=== PATIENT | female | born 1965 | race Two or more races ===

== ENCOUNTER 2024-09-30 04:02 | Emergency (ER) | payer OTHER ==
[~2024-09-30] VITALS: Ht 162.6 cm; Wt 68.1 kg
--- NOTE | 2024-09-30 04:43 | ED.PDOC ---
GI ASSESSMENT HPI Comments 59 year old female presents to the ED via EMS with a chief complaint of abdominal pain onset today (09/30/24) around 02:30. Patient states she has been experiencing chronic constipation for the past year, was seen in an ED about a year ago, was recommended to follow up with PCP for colonoscopy. Patient took a tea last night to help with constipation, woke up today around 02:30, noticed she was experiencing rectal bleeding, states it was about 8 oz of bright red blood, as well as nausea/vomiting. She was given 100 mcg Fentanyl in route to ED, improved patient's pain. Denies any PMHx as well as chest pain, shortness of breath, dysuria, hematuria, hematemesis, fevers. No other symptoms or modifying factors present at this time. Chief Complaint: Abdominal Pain Time Seen by MD: 04:30 Reviewed Notes: Medications, Allergies Allergies: Coded Allergies: Latex (Verified Allergy, Unknown, 09/30/24) Home Meds Active Scripts Gabapentin (Once-Daily) (Gabapentin) 300 Mg Tab, 300 MG PO Q6HP PRN, #60 TAB Prov:ARLET BHAKTA MD 09/30/24 Fiber (FIBER SELECT GUMMIES) Gummies Chw, 1 UNIT OR QID for 90 Days, #360 TAB.CHEW 3 Refills Prov:ARLET BHAKTA MD 09/30/24 Ondansetron HCl (Ondansetron Hydrochloride) 8 Mg Tab, 8 MG PO Q6HP PRN, #30 TAB Prov:ARLET BHAKTA MD 09/30/24 Information Source: Patient, Emergency Med Personnel Timing: Hours Duration: Since onset Prehospital treatment: Pain Meds (Fentanyl 100 mcg) Quality: Sharp Stool: Blood Streaked Severity: Moderate Recent: None Recent Hx of: None Pain Location: Suprapubic Modifying Factors: Nothing Associated sign and symptoms: Nausea, Vomiting, Abdominal Pain, Blood in Stool Past Medical History PAST MEDICAL HISTORY: Denies Surgical History: Hysterectomy BAG GRADER History: No Pertinent BAG GRADER History Family History Family History: Reviewed,noncontributory to illness, No family hx of Cancer, No family hx of DM, No family hx of Heart john, No family hx of HTN, No family hx ofKidney john, No family hx of Liver john, No family hx of Lung john, No family hx of Stroke Social History Smoker: Non-Smoker Alcohol: Denies ETOH Use Drugs: Denies Drug Use Lives In: Home Constitutional: denies: chills, diaphoresis, fatigue, fever, malaise, sweats, weakness, others EENTM: denies: blurred vision, double vision, ear bleeding, ear discharge, ear drainage, ear pain, ear ringing, eye pain, eye redness, hearing loss, mouth pain, mouth swelling, nasal discharge, nose bleeding, nose congestion, nose pain, photophobia, tearing, throat pain, throat swelling, voice changes, others Respiratory: denies: cough, hemoptysis, orthopnea, SOB at rest, shortness of breath, SOB with excertion, stridor, wheezing, others Cardiovascular: denies: chest pain, dizzy spells, diaphoresis, Dyspnea on exertion, edema, irregular heart beat, left arm pain, lightheadedness, palpitations, PND, syncope, others Gastrointestinal: reports: abdominal pain, constipated, nausea, rectal bleeding , vomiting; denies: abdomen distended, blood streaked bowels, diarrhea, dysphagia, difficulty swallowing, hematemesis, melena, poor appetite, poor fluid intake, rectal pain, others Genitourinary: denies: abnormal vagina bleeding, burning, dyspareunia, dysuria, flank pain, frequency, hematuria, incontinence, pain, , vagina discharge, urgency, others Neurological: denies: dizziness, fainting, headache, left sided numbness, left sided weakness, numbness, paresthesia, pre-existing deficit, right sided numbness, right sided weakness, seizure, speech problems, tingling, tremors, weakness, others Musculoskeletal: denies: back pain, gout, joint pain, joint swelling, muscle pain, muscle stiffness, neck pain, others Integumetry: denies: bruises, change in color, change in hair/nails, dryness, laceration, lesions, lumps, rash, wounds, others Allergic/Immunocompromised: denies: Difficulty Healing, Frequent Infections, Hives, Itching, others Hematologic/Lymphatic: denies: anemia, blood clots, easy bleeding, easy bruising, swollen glands, others Endocrine: denies: excessive hunger, excessive sweating, excessive thirst, excessive urination, flushing, intolerance to cold, intolerance to heat, unexplained weight gain, unexplained weight loss, others Psychiatric: denies: anxiety, bipolar disorder, depression, hopeless, panic disorder, schizophrenia, sleepless, suicidal, others All Other Systems: Reviewed and Negative Physical Exam General Appearance: Normal HEENT: Normal ENT Inspection, Pharynx Normal, TMs Normal Neck: Full Range of Motion, Non-Tender, Normal, Normal Inspection Respiratory: Chest Non-Tender, Lungs Clear, No Accessory Muscle Use, No Respiratory Distress, Normal Breath Sounds Cardiovascular: No Edema, No JVD, No Murmur, No Gallop, Normal Peripheral Pulses, Regular Rate/Rhythm Breast Exam: Deferred Gastrointestinal: No Organomegaly, Non Tender, No Pulsatile Mass, Normal Bowel Sounds, Soft Genitalia: Deferred Pelvic: Deferred Rectal: Deferred Extremities: No calf tenderness, Normal capillary refill, Normal inspection, Normal range of motion, Non-tender, No pedal edema Musculoskeletal : Apperance: Normal Neurologic: Alert, cargoman II-XII nml as Tested, No Motor Deficits, Normal Affect, Normal Mood, No Sensory Deficits Cerebellar Function: Normal Reflexes: Normal Skin: Dry, Normal Color, Warm Lymphatic: No Adenopathy Was a procedure done? Was a procedure done?: No GI differential Dx Differential Diagnosis: Appendicitis, Aortic dissection, Bowel Obstruction, Gastritis/PUD, Ovarian cyst/torsion, Kidney Stone, Other X-Ray, Labs, Meds, VS Vital Signs Date Time Temp Pulse Resp B/P (MAP) Pulse Ox O2 Delivery O2 Flow Rate FiO2 09/30/24 05:00 98.6 74 16 121/79 (93) 98 98.6 09/30/24 05:00 74 14 98 Room Air* 0 21 09/30/24 04:10 98.4 68 18 122/80 (94) 96 98.4 09/30/24 04:05 69 Time of 1ST Reevaluation: 05:00 Reevaluation 1ST: Unchanged Patient Education/Counseling: Diagnosis, Treatment, Prognosis Family Education/Counseling: No Family Present SEPSIS Sepsis Screen Orders/Vitals/Labs Physician Orders Electrocardigram (09/30/24 04:11) Vital Signs Date Time Temp Pulse Resp B/P (MAP) Pulse Ox O2 Delivery O2 Flow Rate FiO2 09/30/24 05:00 98.6 74 16 121/79 (93) 98 98.6 09/30/24 05:00 74 14 98 Room Air* 0 21 09/30/24 04:10 98.4 68 18 122/80 (94) 96 98.4 09/30/24 04:05 69 Departure 1 Departure Time of Disposition: 06:00 Impression: Primary Impression: Non-specific colitis Disposition: 01 HOME / SELF CARE / HOMELESS Condition: Stable e-Prescriptions Gabapentin (Once-Daily) (Gabapentin) 300 Mg Tab 300 MG PO Q6HP PRN, #60 TAB Prov: ARLET BHAKTA MD 09/30/24 Fiber (FIBER SELECT GUMMIES) Gummies Chw 1 UNIT OR QID for 90 Days, #360 TAB.CHEW 3 Refills Prov: ARLET BHAKTA MD 09/30/24 Ondansetron HCl (Ondansetron Hydrochloride) 8 Mg Tab 8 MG PO Q6HP PRN, #30 TAB Prov: ARLET BHAKTA MD 09/30/24 Discharged With: Self Critical Care Note Critical Care Time?: No Stability Stability form required: No I personally scribed for ARLET BHAKTA MD ([email or web address]) on 09/30/24 at 04:43. Electronically submitted by Rosario Jonas ([email or web address]). ARLET BHAKTA MD Sep 30, 2024 04:43
[2024-09-30] MEDS ORDERED: GABA300T4 PO (04:53)
[2024-09-30] MEDS ORDERED: ONDA-180 PO (04:53)
[2024-09-30] MEDS ORDERED: FIBECHW2 OR (04:53)
[2024-09-30 05:00] VITALS: BP 121/79; PULSE 74; RESP 14; TEMP 98.6; O2SAT 98
--- NOTE | 2024-09-30 06:57 | ECG ---
[facility] Test Date: 2024-09-30 Test Time: 04:05:57 Pat Name: DORY NORRIS Department: ED Room: Gender: F [employer] Operator: : [id number] Requested By: EMERGENCY EMERGENCY Order Number: [id number] Reading MD: Venkatesh Cordero Measurements Intervals [place] Rate: 69 P: 51 TN: 136 QRS: 65 QRSD: 88 T: 54 QT: 453 QTc: 486 Interpretive Statements Sinus rhythm Electronically Signed On 09-30-2024 17:46:57 PDT by Venkatesh Cordero Please click the below link to view image of tracing.
== END 2024-09-30 05:27 | disposition home or self-care (01) ==
LOC: EDBD 04:02 → ER 04:02
DX: K52.9 Noninfective gastroenteritis and colitis, unspecified (principal); Z90.710 Acquired absence of both cervix and uterus; Z88.8 Allergy status to other drugs, medicaments and biological substances
CPT/HCPCS: 93005